=== PATIENT | male | born 2000 | race Caucasian/White ===

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

== ENCOUNTER 2019-10-19 20:06 | Emergency (ER) | payer SELFPAY ==
[~2019-10-19] VITALS: Ht 180.3 cm; Wt 81.8 kg
[2019-10-19 20:11] VITALS: Ht 180.3 cm; Wt 81.8 kg
[2019-10-19] MEDS ORDERED: HYDROCODON-ACE1 EA10 PO (21:06)
[2019-10-19 21:19] VITALS: BP 112/57
== END 2019-10-19 21:19 | disposition home or self-care (01) ==
LOC: D.ER 20:06
DX: S62.232A Other displaced fracture of base of first metacarpal bone, left hand, initial encounter for closed fracture (principal); X58.XXXA Exposure to other specified factors, initial encounter